=== PATIENT | male | born 1945 | race Caucasian/White ===

== ENCOUNTER → 2024-07-01 | Outpatient (CLI) | payer MEDICARE, MEDICAID, SELFPAY ==
[2024-07-01 20:30] LABS: Prostate Specific Antigen < 0.10 ng/mL (0-4.00)
== END | disposition home or self-care (01) ==
LOC: SCTO 09:56
PROVIDERS: PCP Internal Medicine; Referring Provider Radiology Therapeutic Radiology; Visit Provider Radiology Therapeutic Radiology
DX: C61 Malignant neoplasm of prostate (principal)
CPT/HCPCS: 36415; 84153

== ENCOUNTER 2024-07-09 13:16 | Outpatient (RCR) | payer MEDICARE, MEDICAID, SELFPAY ==
--- NOTE | 2024-07-09 13:42 | CTCFLWUP_ITS ---
[facility] [address] [place], [place] [address] FOLLOW-UP NOTE Date: 07/09/2024 MR#: [id number] Name: MARLEN GERARDO : 1945 Dx: C61 Malignant neoplasm of prostate Identification. 78-year-old gentleman with prostate [place] score 9 Robotic radical prostatectomy [facility] 04/05/2020. [id number]. PSA lizet to 0.12 on 10/05/2021. Postop XRT 6840 cGy prostate region completed 12/22/2021. Had approximately 1 years worth of 4 Lupron injections between 12/22/2021 through 09/04/2022 Most recent PSA less than 0.10 on 07/01/2024. Patient experiencing hot flashes which bothers patient a nd also is having nocturia frequency. Will give patient 1 month worth of 75 mg of venlafaxine as a t rial. Told patient to call me in 2 weeks to see if this should be continued. Electronically signed by: Tyler Blanco M.D. 07/09/2024 1:39 PM
== END 2024-07-25 23:59 | disposition home or self-care (01) ==
LOC: SCTC 13:16
PROVIDERS: PCP Internal Medicine; Referring Provider Internal Medicine; Visit Provider Radiology Therapeutic Radiology
DX: C61 Malignant neoplasm of prostate (principal); Z90.79 Acquired absence of other genital organ(s); Z92.3 Personal history of irradiation; R35.1 Nocturia; R35.0 Frequency of micturition
CPT/HCPCS: 99213; G0463

== ENCOUNTER 2025-06-23 12:59 | Outpatient (RCR) | payer MEDICARE, MEDICAID, SELFPAY ==
--- NOTE | 2025-06-23 13:38 | CTCFLWUP_ITS ---
[facility] [address] [place], [place] [address] FOLLOW-UP NOTE Date: 06/23/2025 MR#: [id number] Name: MARLEN GERARDO : 1945 Dx: C61 Malignant neoplasm of prostate Identification. Patient with prostate [place] score 9 Robotic radical prostatectomy [facility] 04/05/2020 P T3a N0 PSA lizet to 0.12 on 10/05/2021. Postop XRT 6040 cGy to the prostate region completed 12/22/2021. Had about 1 years worth of for Lupron injection from 12/22/2021 through 09/04/2022. Did not like the side effects of hot flashes which he has had till this day. Patient has been taking venlafaxine 75 mg nightly with some relief. Would like to use capsules. Which is easier to tolerate than tablets which she has to taste. Most recent PSA was less than 0.04 on 10/30/2024. Given labs CBC CMP and PSA to get done before next visit. Electronically signed by: Tyler Blanco M.D. 06/23/2025 1:35 PM
== END 2025-06-24 23:59 | disposition home or self-care (01) ==
LOC: SCTC 12:59
PROVIDERS: PCP Internal Medicine; Referring Provider Internal Medicine; Visit Provider Radiology Therapeutic Radiology
DX: C61 Malignant neoplasm of prostate (principal); Z92.3 Personal history of irradiation
CPT/HCPCS: 99213; G0463